=== PATIENT | male | born 1965 | race Caucasian/White ===

== ENCOUNTER 2021-08-20 12:10 | Emergency (ER) | payer BC ==
[2021-08-20] MEDS: Nitroglycerin 0.4 MG Tab.SL SL ONE (12:43)
[2021-08-20] MEDS: Aspirin 81 MG Tab.Chew PO ONE (12:43)
[2021-08-20 13:12] LABS: ANION GAP 13.7 mmol/L (5-15); CHLORIDE,CL 102 mmol/L (98-107); SODIUM,NA 138 mmol/L (136-145)
[2021-08-20] MEDS: Alum Hydrox/Mag Hydrox/Simeth 30 ML, Lidocaine 2% 15 ML PO ONE ×2 (13:31)
[2021-08-20] MEDS: Lisinopril 10 MG Tab PO ONE (14:06)
== END 2021-08-20 14:53 | disposition home or self-care (01) ==
LOC: KA.ED 12:10
DX: R07.89 Other chest pain (principal); G54.0 Brachial plexus disorders; M79.602 Pain in left arm; E78.00 Pure hypercholesterolemia, unspecified; I10 Essential (primary) hypertension; Z79.899 Other long term (current) drug therapy
CPT/HCPCS: 36415; 71046; 80053; 84484; 85025; 85379; 99285; A9270; 93010; 99284